=== PATIENT | male | born 1960 | race Caucasian/White ===

== ENCOUNTER 2022-08-11 08:29 | Outpatient (CLI) | payer OTHER, SELFPAY ==
[2022-08-11 14:31] LABS: SARS PCR* Negative SARS-CoV-2 (Negative)
== END 2022-08-11 08:30 | disposition home or self-care (01) ==
LOC: FBOREF 08:30
PROVIDERS: PCP Family Medicine; Visit Provider Orthopaedic Surgery
DX: Z20.822 Contact with and (suspected) exposure to COVID-19 (principal)
CPT/HCPCS: 87635

== ENCOUNTER 2022-08-13 13:18 | Inpatient (IN) | payer OTHER, SELFPAY ==
[2022-08-12] VITALS (25 sets, daily range): BP systolic 102–175; BP diastolic 57–103; PULSE 41–58; RESP 12–18; TEMP 36.3–36.8; O2SAT 93–99; BMI 40.3
[2022-08-12] MEDS: OXYCODONE (CR) 10 MG TAB.ER.12H PO (06:25)
[2022-08-12] MEDS: CELECOXIB 200 MG CAPSULE PO ×2 (06:25→21:03)
[2022-08-12] MEDS: ACETAMINOPHEN 500 MG TABLET 1000 MG PO ×3 (06:25→23:48)
[2022-08-12] MEDS: SODIUM CHLORIDE 0.9 % (FLUSH) 10 ML SYRINGE IVF (06:45)
[2022-08-12] MEDS: LACTATED RINGERS 1000 ML 1,000 ML 100 ML IV (06:45)
[2022-08-12] MEDS: fentaNYL 100 MCG/2 ML inj IVP (07:10)
[2022-08-12] MEDS: MIDAZOLAM HCL 1 MG/ML inj IVP (07:10)
--- NOTE | 2022-08-12 07:22 | SUR.PREOP ---
TIME?OUT:?0708 PT/RN/MDA?VERIFICATION?OF?SURGICAL?SITE,?PROCEDURE,?AND?CONSENT OBTAINED?PRIOR?TO?INVASIVE?PROCEDURE.
--- NOTE | 2022-08-12 09:39 | P.NB_ITS ---
Nerve Block Nerve Block Time Seen by Provider: 07:17 Date Seen: 08/12/22 Type of block requested by surgeon for post-operative analgesia: adductor canal Side: bilateral Time out performed: Yes Verification of patient name: Yes Verification of date of : Yes Site marking: site marked Name of person performing procedure: Gt Continuous monitoring Was continuous monitoring of O2 sat, B/P, training and documentation specialist, recorded every 15 minutes?: Yes Procedure Checklist: sterile prep, needles and gloves Ultrasound guided. Images saved: Yes Medications given in 5ml increments after negative aspiration: Marcaine %: 0.25 mL: 26 Needle gauge: 20 and Exparel mL: 14 Patient tolerated procedure well: Yes Additional comments: Needle noted adjacent to nerve Block Charges Block Charge (with Pro Fee): Femoral Nerve Use of Ultrasound Machine for Block: Yes- US Guidance/pain block
--- NOTE | 2022-08-12 09:39 | W.ANESCHARGE ---
Anesthesia Charges Start Date/Time Anesthesia Start Date: 08/12/22 Anesthesia Start Time: 07:28 Stop Date/Time Anesthesia Stop Date: 08/12/22 Anesthesia Stop Time: 12:05 Summary Emergency: No
--- NOTE | 2022-08-12 09:41 | W.PM.NB ---
Nerve Block Nerve Block Time Seen by Provider: 07:17 Date Seen: 08/12/22 Type of block requested by surgeon for post-operative analgesia: geniculars Side: bilateral Time out performed: Yes Verification of patient name: Yes Verification of date of : Yes Site marking: site marked Name of person performing procedure: Gt Continuous monitoring Was continuous monitoring of O2 sat, B/P, senior restaurant manager, recorded every 15 minutes?: Yes Procedure Checklist: sterile prep, needles and gloves Medications given in 5ml increments after negative aspiration: Marcaine %: 0.25 mL: 14 Needle gauge: 25 and Exparel mL: 6 Patient tolerated procedure well: Yes Block Charges Block Charge (with Pro Fee): Genicular Nerve Block Use of Ultrasound Machine for Block: No
--- NOTE | 2022-08-12 11:06 | CRLHL7_ITS ---
For Patients: As a result of the Century Cures Act, medical imaging exams and procedure reports are released immediately into your electronic medical record. You may view this report before your referring provider. If you have questions, please contact your health care provider. INDICATION: Follow up left knee arthroplasty. TECHNIQUE: Two portable postoperative images of the left knee. FINDINGS: Left knee arthroplasty. Patellar resurfacing. The components are adequately aligned and well seated. Air within the soft tissues and joint space related to the surgery. Soft tissue swelling. IMPRESSION: Postsurgical change from a left knee arthroplasty. The components are adequately aligned and well seated. Dictated by Rick Mcgraw MD @ 08/12/2022 2:11:36 PM (Electronically Signed)
--- NOTE | 2022-08-12 11:06 | CRLHL7_ITS ---
For Patients: As a result of the Cures Act, medical imaging exams and procedure reports are released immediately into your electronic medical record. You may view this report before your referring provider. If you have questions, please contact your health care provider. INDICATION: Post operative right total knee arthroplasty TECHNIQUE: Knee radiograph 2 views right COMPARISON: None FINDINGS: Bone: No acute fractures or aggressive bone lesions are identified. Joint: The patient is status post a total knee arthroplasty with patellar resurfacing. No significant knee effusion is seen. Soft tissue: Anterior subcutaneous gas and joint gas are present from recent surgery. No radiopaque foreign bodies are seen. IMPRESSION: 1. There is an unremarkable postoperative appearance of the knee arthroplasty. Dictated by: Manjit Wheatley MD @ 08/12/2022 14:03:35 (Electronically Signed)
--- NOTE | 2022-08-12 11:08 | PM.ORPRC ---
Procedure Note Date of procedure: 08/12/22 Procedure: PREOPERATIVE DIAGNOSIS: Bilateral knee osteoarthritis POSTOPERATIVE DIAGNOSIS: Bilateral knee osteoarthritis NAME OF OPERATION: Bilateral total knee arthroplasty SURGEON: Rafi Hansen MD DRYWALL HANGER: Rich Browning PA-C ANESTHESIA: Spinal ESTIMATED BLOOD LOSS: 0 mL COMPLICATIONS: None SPECIMENS: None DRAINS: None PREOPERATIVE ANTIBIOTICS: Ancef 3 grams IMPLANTS: Right knee: 1. J&J Attune # 8 posterior stabilized femur 2. # 9 fixed-bearing tibia 3. # 8 posterior stabilized, 7 mm fixed-bearing polyethylene 4. 41 patella Left knee: 1. J&J Attune # 9 posterior stabilized femur 2. # 9 fixed-bearing tibia 3. # 9 posterior stabilized, 5 mm fixed-bearing polyethylene 4. 41 patella INDICATIONS: The patient is a 62-year-old with a longstanding history of severe, unrelenting bilaterally knee pain secondary to end-stage (grade IV) right knee osteoarthritis. Despite appropriate nonoperative management, including activity modification, anti-inflammatories, [id number] pain medication, bracing, physical therapy, and injections they continue to have pain and disability. Operative intervention was offered. The risks, benefits and expected outcomes were discussed in detail. These included but were not limited to: Infection, bleeding, injury to blood vessel or nerve, venous thromboembolism. All questions were answered to their satisfaction. Use of an commercial real estate assistant was necessary throughout the case for patient positioning and safety, soft tissue retraction, and closure. PROCEDURE: Spinal anesthesia was administered. The patient was placed supine on the operating table. The commercial real estate assistant made sure the patient was positioned appropriately. The lower extremity was prepped and draped in the usual sterile fashion. The limb was exsanguinated with the Leonard bandage. The pneumatic tourniquet was inflated to 300 mmHg. A standard anterior incision was made with the knee in flexion. Subcutaneous dissection was sharply taken through fascial layer #1. Full-thickness medial and lateral flaps were elevated. The commercial real estate assistant retracted the soft tissues and protected them throughout the case. A standard medial parapatellar approach was made. The patella was everted. The infrapatellar fat pad was preserved. The menisci and cruciate ligaments were sharply d?brided. Marginal osteophytes were d?brided with the rongeur. The drill was used to penetrate the femoral canal. The canal was aspirated and irrigated with pulse lavage. The intramedullary femoral guide was placed for a 5-degree valgus cut, removing 10 mm off the distal femur. The saw was used to make the cut. Whitesides line and the trans epicondylar axis were marked. The femoral sizing guide was pinned onto the distal femur. Three degrees of external rotation nicely parallels the transepicondylar axis. Pins were placed for posterior referencing. The four-in-one cutting guide was pinned onto the distal femur. The anterior, posterior, and chamfer cuts were made. The commercial real estate assistant protected the collateral ligaments. The box cutting guide was pinned. The box cuts were made. The boxed trial was placed and was an excellent fit. Drill holes for the lugs were made. Attention was then turned to the proximal tibia. The extramedullary tibial guide was placed for a neutral varus/valgus cut with 5 degrees of posterior slope, removing 2 mm based off the medial tibial surface. The commercial real estate assistant protected the collateral ligaments and the neurovascular bundle. The saw was used to make the cut. Trial components were placed. The knee was nicely balanced in both flexion and extension. The trial components were removed. The tray was placed in appropriate rotation, parallel to our tibial cutting pins. It was pinned by the commercial real estate assistant and the drill and the punch were used. The tray was removed. The punch was used again. We placed a bone plug in the femoral canal. Attention was then turned to the patella. [place] patellar thickness was 26 mm. The lobster claw resection guide was used with the 9.5 mm monty. The saw was used to make the cut. Drill holes were made by the commercial real estate assistant. The trial was placed and was an excellent fit. Cancellous surfaces were irrigated with pulse lavage and thoroughly dried by the commercial real estate assistant. We cemented the tibial component, then the femoral component. We impacted the 7 mm polyethylene onto the tibial tray. The knee was brought into full extension. We then cemented the patellar component. Excessive cement was removed. The cement was allowed to harden. The knee was taken through a range of motion and was found to be nicely balanced in both flexion and extension. The patella tracks centrally. The commercial real estate assistant did a three minute dilute Betadine solution soak. The commercial real estate assistant irrigated the wound with 3 liters of normal saline via pulse lavage. The commercial real estate assistant reapproximated the extensor mechanism with #1 Vicryl in an interrupted [id number] fashion. The commercial real estate assistant then ran the extensor mechanism with a #1 PDO Stratafix. The commercial real estate assistant closed the subcutaneous tissues with a 3-0 Stratafix and the skin with a running 3-0 Stratafix in a subcuticular fashion. Glue was used to seal the skin. The commercial real estate assistant placed a dry dressing, AUBREY stocking, and Polar Care. Attention was then turned to the left knee. The lower extremity was prepped and draped in the usual sterile fashion. The limb was exsanguinated with the Leonard bandage. The pneumatic tourniquet was inflated to 300 mmHg. A standard anterior incision was made with the knee in flexion. Subcutaneous dissection was sharply taken through fascial layer #1. Full-thickness medial and lateral flaps were elevated. The commercial real estate assistant retracted the soft tissues and protected them throughout the case. A standard medial parapatellar approach was made. The patella was everted. The infrapatellar fat pad was preserved. The menisci and cruciate ligaments were sharply d?brided. Marginal osteophytes were d?brided with the rongeur. The drill was used to penetrate the femoral canal. The canal was aspirated and irrigated with pulse lavage. The intramedullary femoral guide was placed for a 5-degree valgus cut, removing 12 mm off the distal femur. The saw was used to make the cut. Whitesides line and the trans epicondylar axis were marked. The femoral sizing guide was pinned onto the distal femur. Three degrees of external rotation nicely parallels the transepicondylar axis. Pins were placed for posterior referencing. The four-in-one cutting guide was pinned onto the distal femur. The anterior, posterior, and chamfer cuts were made. The commercial real estate assistant protected the collateral ligaments. The box cutting guide was pinned. The box cuts were made. The boxed trial was placed and was an excellent fit. Drill holes for the lugs were made. Attention was then turned to the proximal tibia. The extramedullary tibial guide was placed for a neutral varus/valgus cut with 5 degrees of posterior slope, removing 2 mm based off the medial tibial surface. The commercial real estate assistant protected the collateral ligaments and the neurovascular bundle. The saw was used to make the cut. Trial components were placed. The knee was nicely balanced in both flexion and extension. The trial components were removed. The tray was placed in appropriate rotation, parallel to our tibial cutting pins. It was pinned by the commercial real estate assistant and the drill and the punch were used. The tray was removed. The punch was used again. We placed a bone plug in the femoral canal. Attention was then turned to the patella. [place] patellar thickness was 26 mm. The [employer] claw resection guide was used with the 9.5 mm monty. The saw was used to make the cut. Drill holes were made by the commercial real estate assistant. The trial was placed and was an excellent fit. Cancellous surfaces were irrigated with pulse lavage and thoroughly dried by the commercial real estate assistant. We cemented the tibial component, then the femoral component. We impacted the 5 mm polyethylene onto the tibial tray. The knee was brought into full extension. We then cemented the patellar component. Excessive cement was removed. The cement was allowed to harden. The knee was taken through a range of motion and was found to be nicely balanced in both flexion and extension. The patella tracks centrally. The commercial real estate assistant did a three minute dilute Betadine solution soak. The commercial real estate assistant irrigated the wound with 3 liters of normal saline via pulse lavage. The commercial real estate assistant reapproximated the extensor mechanism with #1 Vicryl in an interrupted qdfhar-ci-vgnqj fashion. The commercial real estate assistant then ran the extensor mechanism with a #1 PDO Stratafix. The commercial real estate assistant closed the subcutaneous tissues with a 3-0 Stratafix and the skin with a running 3-0 Stratafix in a subcuticular fashion. Glue was used to seal the skin. The commercial real estate assistant placed a dry dressing, AUBREY stocking, and Polar Care. Sponge and needle counts were correct x2. The patient tolerated the procedure well. There were no apparent complications. They were carefully transferred to the hospital bed and taken to the postanesthesia care unit in satisfactory condition. PLAN: The patient will be mobilized with physical therapy. Aspirin will be used for DVT prophylaxis. They will be discharged to home once medically appropriate.
--- NOTE | 2022-08-12 13:59 | W.ANESCHARGE ---
Anesthesia Charges Start Date/Time Anesthesia Start Date: 08/12/22 Anesthesia Start Time: 07:28 Stop Date/Time Anesthesia Stop Date: 08/12/22 Anesthesia Stop Time: 12:05 Summary Emergency: No
--- NOTE | 2022-08-12 15:30 | P.IMCN_ITS ---
Date of Consult Consult date: 08/12/22 Requesting Physician: Orthopedics Primary Care Provider: Deny Weber DO Consult Narrative Reason for consult: Management of medical problems Narrative: Phuc Lee is a 62 year old male seen in consultation for management of medical problems following bilateral knee arthroplasty earlier today. Procedures performed by Dr. Hansen requests consultation. There were no operative complications. Postoperatively he is doing well. He reports excellent pain control. His spinal anesthesia has worn off but his nerve blocks appear to be working. He has no other concerns at this time. Preoperatively he was doing well. No recent illness. He was somewhat disabled by his knee pain and reports that he had difficulty walking up and down stairs prior to surgery. Preop physical identified no significant concerns for the perioperative period. He does have sleep apnea and has brought his CPAP along No previous history of complications related to surgery, anesthesia, bleeding or clotting disorder. He does note that he bruises easily with aspirin and has been prescribed aspirin for postoperative VTE prophylaxis. Review of Systems Narrative: Patient reports no other concerns. and daughter also present and have identified no concerns outside of postoperative recovery. [facility] Medical History (Updated 08/12/22 @ 15:42 by Jorge Luis Blanco MD) Easy bruisability High cholesterol Hypertension Obesity Physical deconditioning Skin cancer Sleep apnea Stage 3a chronic kidney disease Surgical History H/O arthroscopy of knee H/O hernia repair History of total bilateral knee replacement (08/12/22) Family History Father Lung cancer Mother Cancer of kidney High blood pressure Sister High blood pressure Brother High blood pressure Social History (Updated 08/12/22 @ 15:37 by Jorge Luis Blanco MD) Narrative: He lives in [place] with his . His children are also available to help postoperatively. He lives in a house with 3 levels. The main floor has no bathroom. It is 12 steps to the upstairs bathroom. He was planning on living on the main floor when he went home. I recommended his get a commode until he is efficiently walking stairs. He does not smoke and he does not drink alcohol Smoking Status: Never smoker Do you use any of these nicotine containing products: None How often do you have a drink containing alcohol: monthly or less Alcohol type: beer How many standard drinks containing alcohol do you have on a typical day: 1 or 2 How often do you have six or more drinks on one occasion: Never AUDIT-C Alcohol total score: 1 Non-prescribed substance use: denies use Caffeine: Yes (Diet Pepsi, 3-4 cans/day) Meds Home Medications and Allergies Home Medications Medication Instructions Recorded Confirmed Type atenolol 100 mg tablet 100 mg PO DAILY 08/11/22 08/12/22 History betamethasone dipropionate 0.05 % 1 applic topical BID PRN 08/11/22 08/12/22 History topical ointment cholecalciferol (vitamin D3) 125 125 mcg PO DAILY 08/11/22 08/12/22 History mcg (5,000 unit) capsule ergocalciferol (vitamin D2) 1,250 50,000 unit PO MOTH 08/11/22 08/12/22 History mcg (50,000 unit) capsule (Vitamin D2) simvastatin 40 mg tablet 40 mg PO HS 08/11/22 08/12/22 History triamterene 37.5 1 tab PO DAILY 08/11/22 08/12/22 History mg-hydrochlorothiazide 25 mg tablet vitamins A,C,V-fjat-tzvnto 14,320 1 cap PO DAILY 08/11/22 08/12/22 History unit-226 mg-200 unit capsule (PreserVision AREDS) Allergies Allergy/AdvReac Type Severity Reaction Status Date / Time No Known Drug Allergies Allergy Verified 08/12/22 06:15 Exam Narrative: Exam Narrative: He is somewhat sleepy recovering from anesthesia. He arouses to voice and answers questions appropriately. Head is normal. Eyes normal. Oropharynx with very small airway. Neck is supple without mass or adenopathy or tenderness. Respirations are clear to auscultation without wheezing rales or rhonchi. Breathing is unlabored. Cardiovascular: S1, S2, regular rate and rhythm. No murmur gallop or rub. Abdomen: Bowel sounds active. Abdomen is soft without tenderness or mass. External genitalia normal. Extremities normal. Ice packs on both knees. He has no significant edema. Good peripheral pulses and perfusion in both feet. He has intact sensation and motion in both feet and ankles. Const: Vital Signs, click to edit/add: Vital Signs - 24 hr 08/12/22 06:51 08/12/22 07:10 08/12/22 07:15 Temperature 98.3 F Pulse Rate 46 L 46 L 44 L Pulse Rate [Left P ulse Oximeter] Respiratory Rate 16 16 16 Blood Pressure 134/72 109/62 114/63 Blood Pressure [Ri ght Arm] Pulse Oximetry 96 96 99 Oxygen Delivery Me thod Room Air Nasal Cannula Nasal Cannula Oxygen Flow Rate 4 4 08/12/22 07:20 08/12/22 12:01 08/12/22 12:35 Temperature 97.4 F L Pulse Rate 44 L 41 L 55 L Pulse Rate [Left P ulse Oximeter] Respiratory Rate 16 14 18 Blood Pressure 102/64 145/91 H 167/89 H Blood Pressure [Ri ght Arm] Pulse Oximetry 99 95 93 Oxygen Delivery Me thod Nasal Cannula Room Air Room Air Oxygen Flow Rate 4 08/12/22 12:05 08/12/22 12:10 08/12/22 12:15 Temperature 97.3 F L Pulse Rate 42 L 43 L 45 L Pulse Rate [Left P ulse Oximeter] Respiratory Rate 12 14 16 Blood Pressure 153/96 H 165/97 H 155/98 H Blood Pressure [Ri ght Arm] Pulse Oximetry 94 96 94 Oxygen Delivery Me thod Room Air Room Air Room Air Oxygen Flow Rate 08/12/22 12:20 08/12/22 12:25 08/12/22 12:30 Temperature 97.5 F L Pulse Rate 51 L 51 L 58 L Pulse Rate [Left P ulse Oximeter] Respiratory Rate 16 16 14 Blood Pressure 167/91 H 172/93 H 163/94 H Blood Pressure [Ri ght Arm] Pulse Oximetry 94 93 94 Oxygen Delivery Me thod Room Air Room Air Room Air Oxygen Flow Rate 08/12/22 12:40 08/12/22 12:47 08/12/22 13:00 Temperature 97.4 F L 97.4 F L Pulse Rate 57 L 55 L 53 L Pulse Rate [Left P ulse Oximeter] Respiratory Rate 12 16 18 Blood Pressure 171/93 H 169/89 H Blood Pressure [Ri ght Arm] 175/94 H Pulse Oximetry 93 95 Oxygen Delivery Me thod Room Air Room Air Room Air Oxygen Flow Rate 08/12/22 13:15 08/12/22 13:30 08/12/22 13:45 Temperature 97.4 F L Pulse Rate Pulse Rate [Left P ulse Oximeter] 50 L 51 L 50 L Respiratory Rate 18 18 18 Blood Pressure Blood Pressure [Ri ght Arm] 121/57 L 113/91 H 140/103 H Pulse Oximetry 95 95 96 Oxygen Delivery Me thod Room Air Room Air Room Air Oxygen Flow Rate 08/12/22 14:16 Temperature Pulse Rate Pulse Rate [Left P ulse Oximeter] 50 L Respiratory Rate 18 Blood Pressure Blood Pressure [Ri ght Arm] 158/92 H Pulse Oximetry 94 Oxygen Delivery Me thod Room Air Oxygen Flow Rate Documenting provider has reviewed patient's vital signs: yes Assessment and Plan Assessment and plan (1) History of total bilateral knee replacement: Problem comment: Bilateral TKA (08/12/2022, Dr. Hansen) Status: Acute (2) Obesity: Problem comment: This will increase the challenge of mobility for the patient, his family and therapists Status: Acute (3) Physical deconditioning: Problem comment: Preoperatively had become deconditioned do due to disability from bilateral knee arthritis. Status: Acute (4) Sleep apnea: Problem comment: uses CPAP. Opioid pain medicines will make his sleep apnea much worse. He is to be very careful to use CPAP at any time when sleeping. Status: Acute (5) Easy bruisability: Problem comment: When taking aspirin. Will use aspirin for VTE prophylaxis Status: Acute (6) Hypertension: Problem comment: Continue atenolol with hold parameters. Hold triamterene hydrochlorothiazide for now Status: Acute Plan Patient is admitted to the hospital for recovery from bilateral knee arthroplasty. Doing quite well at this point. No obvious surgical complications. Patient and family are informed of the challenges of recovery from bilateral knee surgery and appear willing and able to step up to the challenge. We talked in some detail about pain management, arranging the home to accommodate him including allowing him to live on 1 level until he is more mobile on stairs. We also talked about the importance of using CPAP religiously while taking opioids for pain Total time spent today is 50 minutes, 30 minutes in coordination of care and discussing with patient and family and other providers ongoing evaluation management of postoperative care and pain
[2022-08-12] MEDS: CEFAZOLIN 3 GM in 0.9 % SODIUM CHLORIDE 100 ml 100 ML IVPB ×2 (15:51→23:47)
[2022-08-12] MEDS: HYDROmorphone 0.5 mg/0.5 ml inj IVP (16:00)
[2022-08-12] MEDS: LACTATED RINGERS 1000 ML 1,000 ML 75 ML IV (18:10)
--- NOTE | 2022-08-12 19:54 | PC.NURSE ---
Pt up with assist of 2 first time to bedside commode. Pain 8/10 when up, lowered to 2-4/10 once back in bed. See MAR for medication administration with relief. PT & OT 08/13 to assess if pt is able to return home with or stay an additional day for pain control and ambulation saftey.
[2022-08-12] MEDS: SIMVASTATIN 40 MG TABLET PO (21:03)
[2022-08-12] MEDS: ASPIRIN 81 MG TABLET EC PO (21:03)
[2022-08-12] MEDS: SENNOSIDES 1 TAB TABLET 2 TAB PO (21:03)
[2022-08-12] MEDS: OXYCODONE 5 MG TABLET PO (23:49)
[2022-08-13] VITALS (8 sets, daily range): BP systolic 131–147; BP diastolic 66–84; PULSE 54–61; RESP 16–18; TEMP 36.6–37.3; O2SAT 91–95
[2022-08-13] MEDS: OXYCODONE 5 MG TABLET PO ×4 (06:24→20:01)
[2022-08-13] MEDS: ACETAMINOPHEN 500 MG TABLET 1000 MG PO ×2 (06:24→13:45)
--- NOTE | 2022-08-13 07:01 | PC.NURSE ---
23-07: pleasant and cooperative. Calls appropriately. Pt dangle at bedside to use urinal, tolerated well. c/o pain 4-5/10 at rest, 7/10 with movement, 10mg oxy given x 2, with relief. VSS. Bilat teds on, cryo cuff on, dressings CDI, SCDs on. CPAP on while pt asleep.
[2022-08-13 07:39] LABS: Basophils Absolute Auto 0.01 K/uL (0.00-0.30); Basophils Percent Auto 0.1 % (0.0-3.0); Eosinophils Absolute Auto 0.03 K/uL (0.00-0.50); Eosinophils Percent Auto 0.3 % (0.0-7.0); Hematocrit 40.6 % (37.0-53.0); Hemoglobin* 13.5 gm/dL (13.5-17.5); Immature Granulocytes Abs Auto 0.04 K/uL (0.00-0.30); Immature Granulocytes Pct Auto 0.4 %; Lymphocytes Percent Auto 10.4 % (20-44); Mean Corpuscular HGB Conc 33 gm/dL (32-36); Mean Corpuscular Hemoglobin 31 pg (26-34); Mean Corpuscular Volume 92 fL (80-100); Neutrophils Percent Auto 76.8 % (42.0-72.0); Platelet Count* 164 K/uL (140-440); RDW Coefficient of Variation % 12.8 % (11.5-15.5); White Blood Count* 10.26 K/uL (4.50-11.00)
[2022-08-13 07:40] LABS: Slide Review Reflex No
[2022-08-13 07:47] LABS: Sodium* 139 mmol/L (135-149)
[2022-08-13 07:48] LABS: Potassium* 4.3 mmol/L (3.6-5.1)
[2022-08-13 07:50] LABS: Est. Creatinine Clearance* 77.06; Estimated Glomerular Filt Rate 84 ml/min; INR 1.16 (0.91-1.10); Prothrombin Time 15.5 Seconds
[2022-08-13 07:51] LABS: Blood Urea Nitrogen* 23 mg/dL (7-30)
[2022-08-13] MEDS: CEFAZOLIN 3 GM in 0.9 % SODIUM CHLORIDE 100 ml 100 ML IVPB (07:53)
[2022-08-13] MEDS: atenoloL 50 MG TABLET 100 MG PO (08:36)
[2022-08-13] MEDS: CELECOXIB 200 MG CAPSULE PO ×2 (08:37→20:00)
[2022-08-13] MEDS: ASPIRIN 81 MG TABLET EC PO ×2 (08:37→20:01)
[2022-08-13] MEDS: SENNOSIDES 1 TAB TABLET 2 TAB PO ×2 (08:37→20:01)
--- NOTE | 2022-08-13 11:50 | PM.ORPN ---
Subjective Subjective Time Seen by Provider: 08:20 Date Seen: 08/13/22 Principal diagnosis: Status post bilateral total knee replacement Interval history: Phuc is comfortable at rest in his bed today. He has not been ambulating since his surgery yet, however he has gotten up to the commode. He will discharge to home tomorrow. Ortho Exam Narrative Exam Narrative: Alert and oriented x3. Patient is in no acute distress. Converses without labored breathing. Hearing is grossly intact. Ambulates with a walker. Examination of lower extremities shows mild effusions. Mild soft tissue edema about the knees. CMS intact bilateral lower extremity peers bilateral calves are soft and nontender. Const Vital Signs, click to edit/add: Vital Signs - 24 hr 08/12/22 12:01 08/12/22 12:35 08/12/22 12:05 Temperature 97.4 F L Pulse Rate 41 L 55 L 42 L Pulse Rate [Left Pulse Oximeter] Respiratory Rate 14 18 12 Blood Pressure 145/91 H 167/89 H 153/96 H Blood Pressure [Right Arm] Pulse Oximetry 95 93 94 Oxygen Delivery Method Room Air Room Air Room Air Oxygen Flow Rate 08/12/22 12:10 08/12/22 12:15 08/12/22 12:20 Temperature 97.3 F L Pulse Rate 43 L 45 L 51 L Pulse Rate [Left Pulse Oximeter] Respiratory Rate 14 16 16 Blood Pressure 165/97 H 155/98 H 167/91 H Blood Pressure [Right Arm] Pulse Oximetry 96 94 94 Oxygen Delivery Method Room Air Room Air Room Air Oxygen Flow Rate 08/12/22 12:25 08/12/22 12:30 08/12/22 12:40 Temperature 97.5 F L Pulse Rate 51 L 58 L 57 L Pulse Rate [Left Pulse Oximeter] Respiratory Rate 16 14 12 Blood Pressure 172/93 H 163/94 H 171/93 H Blood Pressure [Right Arm] Pulse Oximetry 93 94 93 Oxygen Delivery Method Room Air Room Air Room Air Oxygen Flow Rate 08/12/22 12:47 08/12/22 13:00 08/12/22 13:15 Temperature 97.4 F L 97.4 F L 97.4 F L Pulse Rate 55 L 53 L Pulse Rate [Left Pulse Oximeter] 50 L Respiratory Rate 16 18 18 Blood Pressure 169/89 H Blood Pressure [Right Arm] 175/94 H 121/57 L Pulse Oximetry 95 95 Oxygen Delivery Method Room Air Room Air Room Air Oxygen Flow Rate 08/12/22 13:30 08/12/22 13:45 08/12/22 14:00 Temperature Pulse Rate Pulse Rate [Left Pulse Oximeter] 51 L 50 L 50 L Respiratory Rate 18 18 18 Blood Pressure Blood Pressure [Right Arm] 113/91 H 140/103 H 158/92 H Pulse Oximetry 95 96 94 Oxygen Delivery Method Room Air Room Air Room Air Oxygen Flow Rate 08/12/22 15:00 08/12/22 14:30 08/12/22 15:00 Temperature 97.8 F Pulse Rate Pulse Rate [Left Pulse Oximeter] 49 L 50 L Respiratory Rate 18 18 Blood Pressure Blood Pressure [Right Arm] 169/84 H 173/98 H Pulse Oximetry 94 94 94 Oxygen Delivery Method Room Air Room Air Oxygen Flow Rate 08/12/22 16:00 08/12/22 17:00 08/12/22 18:00 Temperature Pulse Rate Pulse Rate [Left Pulse Oximeter] 53 L 55 L 57 L Respiratory Rate 18 18 18 Blood Pressure Blood Pressure [Right Arm] 148/89 H 136/84 149/87 H Pulse Oximetry 95 96 96 Oxygen Delivery Method Room Air Room Air Room Air Oxygen Flow Rate 08/12/22 23:00 08/12/22 23:00 08/12/22 23:00 Temperature 98.1 F Pulse Rate Pulse Rate [Left Pulse Oximeter] 58 L 58 L Respiratory Rate 18 18 Blood Pressure Blood Pressure [Right Arm] 140/75 H Pulse Oximetry 95 95 Oxygen Delivery Method Room Air Oxygen Flow Rate 08/13/22 02:55 08/13/22 07:00 08/13/22 07:30 Temperature 98 F 98 F Pulse Rate Pulse Rate [Left Pulse Oximeter] 57 L 57 L Respiratory Rate 18 18 Blood Pressure Blood Pressure [Right Arm] 143/84 H 143/84 H Pulse Oximetry 95 92 92 Oxygen Delivery Method Room Air Room Air Oxygen Flow Rate 4 08/13/22 11:29 Temperature Pulse Rate Pulse Rate [Left Pulse Oximeter] 54 L Respiratory Rate 16 Blood Pressure Blood Pressure [Right Arm] Pulse Oximetry 93 Oxygen Delivery Method CPAP Oxygen Flow Rate Assessment and Plan Assessment and plan (1) History of total bilateral knee replacement: Problem details: Bilateral TKA (08/12/2022, Dr. Hansen) Status: Acute Assessment and Plan: Plan for discharge is tomorrow to home if they meet discharge criteria. DVT prophylaxis includes aspirin 81 mg twice daily x1 month, Abdon stockings x1 month may remove for 1 hr per day, frequent ambulation Remove dressing in 1 week. Observe wound and phone Orthopedics with any questions or concerns Return to clinic in 1 week for a wound check Return to clinic in [address] Hansen Minimize narcotic use. Wean off and discontinue soon as possible. Activities as tolerated. No strenuous activity. Outpatient physical therapy as scheduled. Ice and elevate the operative extremity. No restriction on ice. (2) Obesity: Problem details: This will increase the challenge of mobility for the patient, his family and therapists Status: Acute (3) Physical deconditioning: Problem details: Preoperatively had become deconditioned do due to disability from bilateral knee arthritis. Status: Acute (4) Sleep apnea: Problem details: uses CPAP. Opioid pain medicines will make his sleep apnea much worse. He is to be very careful to use CPAP at any time when sleeping. Status: Acute (5) Easy bruisability: Problem details: When taking aspirin. Will use aspirin for VTE prophylaxis Status: Acute (6) Hypertension: Problem details: Continue atenolol with hold parameters. Hold triamterene hydrochlorothiazide for now Status: Acute
--- NOTE | 2022-08-13 17:15 | PM.IMPN1 ---
Progress Note: A&P Assessment and plan (1) History of total bilateral knee replacement: Problem details: Bilateral TKA (08/12/2022, Dr. Hansen). Recovering from surgery as expected. No obvious complications. Significant issues with bilateral knee pain. Status: Acute (2) Obesity: Problem details: This will increase the challenge of mobility for the patient, his family and therapists. Status: Acute (3) Physical deconditioning: Problem details: Preoperatively had become deconditioned do due to disability from bilateral knee arthritis. Status: Acute (4) Sleep apnea: Problem details: uses CPAP. Opioid pain medicines will make his sleep apnea much worse. He is to be very careful to use CPAP at any time when sleeping. Status: Acute (5) Easy bruisability: Problem details: When taking aspirin. Will use aspirin for VTE prophylaxis Status: Acute (6) Hypertension: Problem details: Continue atenolol with hold parameters. Hold triamterene hydrochlorothiazide for now Status: Acute Plan Continue in hospital for 1 more day. Would like to see him move with needing only assist of 1. Would like to see that his pain is reasonably well controlled. Time Spent With Patient Total time spent: Total time spent today is 35 minutes, 25 minutes in coordination of care discussing with patient and other providers management of postoperative pain and recovery and sleep apnea Subjective Date Seen: 08/13/22 Interval history: 62-year-old male seen in followup of bilateral knee arthroplasty. Report having a difficult night of sleep last night. He thinks this is more because he is in a unfamiliar place rather than other problems. This morning he has begun to have quite a bit of pain in his receiving oxycodone 10 mg every couple hours. With this he is getting a little sedated. He is needing assist of 2 this morning for standing and transferring and walking. No nausea. No dyspnea. He wore CPAP all night. Exam Narrative: Exam Narrative: He is alert and appears in no distress. He is pleasant cooperative. He is seen with his today. Respirations clear to auscultation. Cardiovascular: S1, S2, regular rate and rhythm. Abdomen is soft without tenderness. Extremities without edema. Const: Vital Signs, click to edit/add: Vital Signs - 24 hr 08/12/22 18:00 08/12/22 23:00 08/12/22 23:00 Temperature Pulse Rate [Left P ulse Oximeter] 57 L 58 L Respiratory Rate 18 18 Blood Pressure [Ri ght Arm] 149/87 H Pulse Oximetry 96 95 Oxygen Delivery Me thod Room Air Oxygen Flow Rate 08/12/22 23:00 08/13/22 02:55 08/13/22 07:00 Temperature 98.1 F 98 F Pulse Rate [Left P ulse Oximeter] 58 L 57 L Respiratory Rate 18 18 Blood Pressure [Ri ght Arm] 140/75 H 143/84 H Pulse Oximetry 95 95 92 Oxygen Delivery Me thod Room Air Room Air Oxygen Flow Rate 08/13/22 07:30 08/13/22 11:29 08/13/22 15:00 Temperature 98 F Pulse Rate [Left P ulse Oximeter] 57 L 54 L Respiratory Rate 18 16 Blood Pressure [Ri ght Arm] 143/84 H Pulse Oximetry 92 93 95 Oxygen Delivery Me thod Room Air CPAP Oxygen Flow Rate 4 08/13/22 16:50 Temperature 98.9 F Pulse Rate [Left P ulse Oximeter] 60 Respiratory Rate 16 Blood Pressure [Ri ght Arm] 143/81 H Pulse Oximetry 91 Oxygen Delivery Me thod CPAP Oxygen Flow Rate Documenting provider has reviewed patient's vital signs: yes Labs Labs: Laboratory Results - last 24 hr 08/13/22 08/13/22 08/13/22 07:28 07:28 07:28 WBC 10.26 RBC 4.40 Hgb 13.5 Hct 40.6 MCV 92 MCH 31 MCHC 33 RDW Coeff of Virgen 12.8 Plt Count 164 Neut % (Auto) 76.8 H Lymph % (Auto) 10.4 L [place] % (Auto) 12.0 H Eos % (Auto) 0.3 Baso % (Auto) 0.1 Neut # (Auto) 7.90 H Lymph # (Auto) 1.10 [place] # (Auto) 1.20 H Eos # (Auto) 0.03 Baso # (Auto) 0.01 INR 1.16 H Sodium 139 Potassium 4.3 BUN 23 Creatinine 1.0 Estimated Creat Clear 77.06 Estimated GFR 84
--- NOTE | 2022-08-13 19:36 | PC.NURSE ---
Pt up with assist of 1, gait belt, and walker to commode and chair. Pain 4-5/10, see MAR for medication administration with relief. CPAP while sleeping otherwise on RA. Pt will return home with supportive and adult children to assist with rehab.
[2022-08-13] MEDS: SIMVASTATIN 40 MG TABLET PO (20:01)
--- NOTE | 2022-08-13 22:43 | PC.NURSE ---
Status [id number] Alert and oriented. Pleasant and cooperative. PRN oxy given at bedtime. VSS on room air. Wearing CPAP overnight. TEDS applied. Declined foot SCDs. Remained in bed this shift.
[2022-08-14] MEDS: ACETAMINOPHEN 500 MG TABLET 1000 MG PO ×2 (00:23→06:07)
[2022-08-14 03:00] VITALS: BP 120/72; PULSE 62; RESP 16; O2SAT 90
[2022-08-14] MEDS: OXYCODONE 5 MG TABLET PO ×2 (06:07→11:00)
--- NOTE | 2022-08-14 06:36 | PC.NURSE ---
23-07: pleasant and cooperative. VSS. CPAP on while asleep. Pain 2-5/10, 10mg oxy given x 1.?Cryo cuff on, Dressings CDI. CPAP on while asleep.
[2022-08-14 07:03] LABS: Basophils Absolute Auto 0.01 K/uL (0.00-0.30); Basophils Percent Auto 0.1 % (0.0-3.0); Eosinophils Absolute Auto 0.34 K/uL (0.00-0.50); Eosinophils Percent Auto 3.5 % (0.0-7.0); Hematocrit 38.1 % (37.0-53.0); Hemoglobin* 12.7 gm/dL (13.5-17.5); Immature Granulocytes Abs Auto 0.05 K/uL (0.00-0.30); Immature Granulocytes Pct Auto 0.5 %; Lymphocytes Percent Auto 13.7 % (20-44); Mean Corpuscular HGB Conc 33 gm/dL (32-36); Mean Corpuscular Hemoglobin 31 pg (26-34); Mean Corpuscular Volume 93 fL (80-100); Neutrophils Absolute Auto 6.91 K/uL (1.7-7.0); Neutrophils Percent Auto 70.2 % (42.0-72.0); Platelet Count* 142 K/uL (140-440); RDW Coefficient of Variation % 13.1 % (11.5-15.5); Red Blood Count 4.08 m/uL (4.30-5.90); White Blood Count* 9.84 K/uL (4.50-11.00)
[2022-08-14 07:08] LABS: Sodium* 139 mmol/L (135-149)
[2022-08-14 07:09] LABS: Potassium* 3.8 mmol/L (3.6-5.1)
[2022-08-14 07:11] LABS: Creatinine* 1.1 mg/dL (0.5-1.5); Est. Creatinine Clearance* 70.05; Estimated Glomerular Filt Rate 75 ml/min
[2022-08-14 07:12] LABS: Blood Urea Nitrogen* 24 mg/dL (7-30); Slide Review Reflex No
[2022-08-14 07:13] LABS: INR 1.18 (0.91-1.10); Prothrombin Time 15.7 Seconds
[2022-08-14 08:23] VITALS: O2SAT 91
[2022-08-14 08:25] VITALS: BP 136/75; PULSE 60; RESP 18; TEMP 36.6; O2SAT 91
[2022-08-14] MEDS: CELECOXIB 200 MG CAPSULE PO (08:43)
[2022-08-14] MEDS: SENNOSIDES 1 TAB TABLET 2 TAB PO (08:43)
[2022-08-14] MEDS: ASPIRIN 81 MG TABLET EC PO (08:43)
[2022-08-14] MEDS: atenoloL 50 MG TABLET 100 MG PO (08:43)
--- NOTE | 2022-08-14 08:54 | PM.ORPN ---
Subjective Subjective Time Seen by Provider: 08:54 Date Seen: 08/14/22 Principal diagnosis: Status post bilateral total knee replacement Interval history: Phuc is comfortable this morning. He and his states that he has a high pain tolerance. He will be discharging to home today. Ortho Exam Narrative Exam Narrative: Patient denies nausea, vomiting, fever, chills, chest pain, shortness of breath Alert and oriented x3. Patient is in no acute distress. Converses without labored breathing. Hearing is grossly intact. Ambulates with a walker. Emanation of bilateral lower extremities shows minimal soft tissue edema about both lower extremities. Minimal effusion. Dressing is intact bilateral. Bilateral calves are soft and nontender. CMS intact bilateral lower extremities. Good quad function. Const Vital Signs, click to edit/add: Vital Signs - 24 hr 08/13/22 11:29 08/13/22 15:00 08/13/22 16:50 Temperature 98.9 F Pulse Rate [Left Pulse Oximeter] 54 L 60 Respiratory Rate 16 16 Blood Pressure [Right Arm] 143/81 H Pulse Oximetry 93 95 91 Oxygen Delivery Method CPAP CPAP 08/13/22 20:11 08/13/22 23:00 08/13/22 23:00 Temperature 99.2 F Pulse Rate [Left Pulse Oximeter] 61 60 Respiratory Rate 16 16 Blood Pressure [Right Arm] 147/75 H Pulse Oximetry 91 94 Oxygen Delivery Method CPAP 08/13/22 23:00 08/14/22 03:00 08/14/22 08:23 Temperature 98.2 F Pulse Rate [Left Pulse Oximeter] 60 62 Respiratory Rate 16 16 Blood Pressure [Right Arm] 131/66 120/72 Pulse Oximetry 94 90 91 Oxygen Delivery Method Room Air CPAP Room Air CPAP 08/14/22 08:25 Temperature 97.9 F Pulse Rate [Left Pulse Oximeter] 60 Respiratory Rate 18 Blood Pressure [Right Arm] 136/75 Pulse Oximetry 91 Oxygen Delivery Method Room Air Assessment and Plan Assessment and plan (1) History of total bilateral knee replacement: Problem details: Bilateral TKA (08/12/2022, Dr. Hansen). Status: Acute Assessment and Plan: Plan for discharge is today to home if they meet discharge criteria. DVT prophylaxis includes aspirin 81 mg twice daily x1 month, Abdon stockings x1 month may remove for 1 hr per day, frequent ambulation Remove dressing in 1 week. Observe wound and phone Orthopedics with any questions or concerns Return to clinic in 1 week for a wound check Return to clinic in [address] Hansen Minimize narcotic use. Wean off and discontinue soon as possible. Activities as tolerated. No strenuous activity. Outpatient physical therapy as scheduled. Ice and elevate the operative extremity. No restriction on ice. (2) Obesity: Problem details: This will increase the challenge of mobility for the patient, his family and therapists. Status: Acute (3) Physical deconditioning: Problem details: Preoperatively had become deconditioned do due to disability from bilateral knee arthritis. Status: Acute (4) Sleep apnea: Problem details: uses CPAP. Opioid pain medicines will make his sleep apnea much worse. He is to be very careful to use CPAP at any time when sleeping. Status: Acute (5) Easy bruisability: Problem details: When taking aspirin. Will use aspirin for VTE prophylaxis Status: Acute (6) Hypertension: Problem details: Continue atenolol with hold parameters. Hold triamterene hydrochlorothiazide for now Status: Acute
[2022-08-14 10:49] VITALS: BP 169/89; PULSE 53; RESP 18; TEMP 36.6
[2022-08-14 12:12] VITALS: BP 169/89; PULSE 53; RESP 18; TEMP 36.6
--- NOTE | 2022-08-14 12:13 | PC.NURSE ---
Discharge: Patient pleasant and cooperative. Up with one assist, walker and gait belt. Tolerating ambulation well, pain managed with PRN medication and cryocuff. IV removed with catheter intact. Discharge instructions and follow ups reviewed with patient and spouse. Patient discharged to home @ 1150 via wheelchair and staff assist.
--- NOTE | 2022-08-14 17:47 | P.DS_ITS ---
DS: Providers Provider Date Seen: 08/14/22 Date of admission: 08/13/22 13:18 Primary care physician: Deny Weber DO Admitting Clinician: Rafi Hansen MD Consults: 08/12/22 13:29 Consult to Occupational Therapy [CONS] Routine Comment: Reason(s) for OT Consult:: ADLs Prior to Discharge Any Restrictions?:: See Comment Comment: See nursing activity order for any restrictions. Consult to Physical Therapy [CONS] Routine Comment: Ambulate in the mayes today. Reason(s) for PT Consult:: TKA TX Protocol POD#0 Any Restrictions?:: See Comment Comment: See nursing activity order for any restrictions. Consult to Physician [CONS] Routine Comment: Consulting Provider: Hospitalists Has provider been notified: No Consult to Band Cutter [CONS] Routine Comment: Reason for Consult:: Discharge Planning Needs Attending Physician on discharge: Rafi Hansen MD Date of Discharge: 08/14/22 DS: Diagnosis Discharge Diagnosis (1) Hypertension: Status: Acute Problem details: Resume home medications for blood pressure (2) Easy bruisability: Status: Acute Problem details: When taking aspirin. Will use aspirin for VTE prophylaxis (3) Sleep apnea: Status: Acute Problem details: uses CPAP. Opioid pain medicines will make his sleep apnea much worse. He is to be very careful to use CPAP at any time when sleeping. (4) Physical deconditioning: Status: Acute Problem details: Making good progress with therapy (5) History of total bilateral knee replacement: Status: Acute Problem details: Bilateral TKA (08/12/2022, Dr. Hansen). (6) Pain management: Status: Acute Problem details: Pain control much improved today. Discussed use of pain medications to allow for walking, therapy and sleep if needed. Laxatives to counter constipation. CPAP to protect from opioid induced apnea DS: Summary Hospital Course Hospital Course: 62-year-old male admitted to the hospital for bilateral total knee arthroplasty. Procedures performed on the day of admission by Dr. Hansen. There were no operative complications. Postoperatively he has had some issues with mobility and pain control. These have improved over the last day. He has moved from needing the assist of 2 to now standby assistance. He is showing good mobility with a walker. Family seems eager and competent to assist him Status at Discharge Cognitive/behavioral status at discharge: Baseline Functional status at discharge: uses cane/walker Overall status at discharge: patient is progressing back to baseline Time Spent with Patient Time attestation: Total time spent providing and/or coordinating discharge services: Time spent: Less than 30 minutes Exam Narrative: Exam Narrative: He is alert and appears in no distress. Speech is normal. Breathing is unlabored. He has no significant edema in his feet. He moves his feet and ankles well. Good capillary perfusion. Const: Vital Signs, click to edit/add: Vital Signs - 24 hr 08/13/22 20:11 08/13/22 23:00 08/13/22 23:00 Temperature 99.2 F Pulse Rate Pulse Rate [Left P ulse Oximeter] 61 60 Respiratory Rate 16 16 Blood Pressure Blood Pressure [Ri ght Arm] 147/75 H Pulse Oximetry 91 94 Oxygen Delivery Me thod CPAP 08/13/22 23:00 08/14/22 03:00 08/14/22 08:23 Temperature 98.2 F Pulse Rate Pulse Rate [Left P ulse Oximeter] 60 62 Respiratory Rate 16 16 Blood Pressure Blood Pressure [Ri ght Arm] 131/66 120/72 Pulse Oximetry 94 90 91 Oxygen Delivery Me thod Room Air CPAP Room Air CPAP 08/14/22 08:25 08/14/22 10:49 08/14/22 12:12 Temperature 97.9 F 97.9 F 97.9 F Pulse Rate 53 L 53 L Pulse Rate [Left P ulse Oximeter] 60 Respiratory Rate 18 18 18 Blood Pressure 169/89 H 169/89 H Blood Pressure [Ri ght Arm] 136/75 Pulse Oximetry 91 Oxygen Delivery Me thod Room Air Documenting provider has reviewed patient's vital signs: yes DS: Data Data Completed and Pending Labs on day of discharge: Labs from last 24 hours 08/14/22 08/14/22 08/14/22 06:38 06:38 06:38 WBC 9.84 RBC 4.08 L Hgb 12.7 L Hct 38.1 MCV 93 MCH 31 MCHC 33 RDW Coeff of Virgen 13.1 Plt Count 142 Neut % (Auto) 70.2 Lymph % (Auto) 13.7 L [place] % (Auto) 12.0 H Eos % (Auto) 3.5 Baso % (Auto) 0.1 Neut # (Auto) 6.91 Lymph # (Auto) 1.30 [place] # (Auto) 1.20 H Eos # (Auto) 0.34 Baso # (Auto) 0.01 INR 1.18 H Sodium 139 Potassium 3.8 BUN 24 Creatinine 1.1 Estimated Creat Clear 70.05 Estimated GFR 75 Discharge Plan Discharge Disposition: Home, Self-Care Date of Admission: 08/13/22 13:18 Consulting Providers: Jorge Luis Blanco Primary Care Provider: Deny Weber Condition: Improved Anticipated Discharge Date/Time: 08/14/22 10:00 Discharge Medications: New celecoxib 200 mg Capsule 200 mg PO BID PRNQty: 25 0RF sennosides [Senna Lax] 8.6 mg Tablet 17.2 mg PO BID PRN (Reason: constipation) Qty: 100 0RF aspirin [Aspirin Childrens] 81 mg tablet,chewable 81 mg PO BID 30 Days Qty: 60 0RF acetaminophen 500 mg capsule 500 - 1,000 mg PO Q6H MDD 4000mg per day PRN (Reason: pain) Qty: 100 0RF oxycodone 5 mg Tablet 2.5 - 5 mg PO Q4-6H MDD 6 tabs per day PRN (Reason: Pain) Qty: 42 0RF Rx Instructions: Minimize. Discontinue as soon as possible Continued atenolol 100 mg tablet 100 mg PO DAILY ergocalciferol (vitamin D2) [Vitamin D2] 1,250 mcg (50,000 unit) capsule 50,000 unit PO MOTH simvastatin 40 mg tablet 40 mg PO HS triamterene-hydrochlorothiazid 37.5-25 mg tablet 1 tab PO DAILY PreserVision AREDS [id number] owux-kn-qhwa capsule 1 cap PO DAILY cholecalciferol (vitamin D3) 125 mcg (5,000 unit) capsule 125 mcg PO DAILY betamethasone dipropionate 0.05 % ointment 1 applic topical BID PRN Discharge Orders: Discharge Order (Routine); Ordered 08/14/22 Ordered By: Lala Marti Patient Education: Acetaminophen (By mouth), Aspirin (By mouth), Oxycodone, Rapid Release (By mouth), Celecoxib (By mouth), Senna (By mouth), Knee Replacement (DC) Activity Level: Activity as Tolerated and No strenuous activity Activity Detail: Keep dressing on for 1 week. Dressing is waterproof. May shower. Surgical glue covers the wound. Attend outpatient physical therapy if scheduled. Ice and elevate operative extremity without restriction. Wear compression stockings for 1 month post surgery. May remove for 1 hour per day. Ambulate every hour throughout the day. If you drive, Do not drive while taking narcotic pain medication. Do not drink alcohol while taking narcotic pain medication. May drive when safe to do so and have full function of the extremities, this may take 6 weeks or more. Notify Orthopedics with any questions or concerns. ([phone]) Follow Up Appointments: Deny Weber DO [Primary Care Provider] - Lala Marti PA-C [Physician Front Of House Manager] - 08/19/22 10:30 am ([facility] Call if you have any questions) Forms: Work/School Release
== END 2022-08-14 11:50 | disposition home or self-care (01) | DRG 462 ==
LOC: OR 13:25 → MEDSURG 13:25
PROVIDERS: Admitting Provider Orthopaedic Surgery; PCP Family Medicine; Visit Provider Orthopaedic Surgery
PROC: 0SRC0JZ Replacement of Right Knee Joint with Synthetic Substitute, Open Approach (ICD-10-PCS; CPT 27447; principal; 2022-08-12 07:30)
DX: M17.0 Bilateral primary osteoarthritis of knee (principal); Z68.41 Body mass index [BMI] 40.0-44.9, adult; G89.18 Other acute postprocedural pain; G47.30 Sleep apnea, unspecified; I12.9 Hypertensive chronic kidney disease with stage 1 through stage 4 chronic kidney disease, or unspecified chronic kidney disease; N18.31 Chronic kidney disease, stage 3a; E66.9 Obesity, unspecified; R23.3 Spontaneous ecchymoses
CPT/HCPCS: 01402; 36415; 64447; 64454; 73560; 76942; 82565; 84132; 84295; 84520; 85025; 85610; 97110; 97116; 97162; 97165; 97530; 97535; A9270; C1776; C9290; J0171; J0690; J1100; J1170; J2250; J2370; J2405; J2704; J3010; J3490; J7120

== ENCOUNTER 2022-09-25 10:45 | Outpatient (RCR) | payer OTHER, SELFPAY | END 2022-09-25 15:28 | disposition home or self-care (01) | PROVIDERS: PCP Family Medicine; Visit Provider Orthopaedic Surgery | DX: M17.0 Bilateral primary osteoarthritis of knee (principal); Z51.89 Encounter for other specified aftercare | CPT/HCPCS: 97110; 97161; 97164 ==

== ENCOUNTER 2023-08-04 11:50 | Outpatient (CLI) | payer OTHER, SELFPAY ==
--- OUTSIDE RECORDS SUMMARY | 2023-08-04 11:53 | XMS_ITS | Referral Summary ---
Author Name Unknown Organization [facility] Address [address] [place] [address] Care Team Providers Care Support Services Tech Name Role Phone Elsewhere, Pcp Primary Care Provider Unavailabl e Source Comments Patient records contain information from all sites at [facility]. For routine questions regarding patient records, call [phone] during business hours, M-F 8:00 AM - 5:00 PM Central Time. Record requests for emergency care only can be directed to [phone] at any time.[facility] Allergies No known active allergies Medications Medication Sig Dispensed Refills Start Date End Date Status simvastatin (ZOCOR) 40 mg tablet Take 1 tablet by mouth at bedtime. 0 09/04/2014 Active hydroCHLOROthiazide (HYDRODIURIL) 25 mg tablet Take 1 tablet by mouth daily. 0 10/08/2014 Active ADULT LOW DOSE ASPIRIN ORAL Take 1 tablet by mouth daily. 0 11/27/2009 Active atenolol (TENORMIN) 100 mg tablet Take 1 tablet by mouth daily. 0 10/17/2014 Active vitamins A,C,L-skco-bqxnoq (PRESERVISION AREDS) 7,160 Units-113 mg-100 Units per tablet Take 1 tablet by mouth daily. 0 Active Active Problems Problem Noted Date Diagnosed Date Nevus Iris Left 04/02/2022 Hypertension 11/29/2009 Overview: HTN [Hypertension] Immunizations Name Administration Dates Next Due Td Preservative Free (TENIVAC, DECAVAC) 01/16/20 06 Tdap 09/04/2014 Social History Tobacco Use Types Packs/Day Years Used Date Smoking Tobacco: Never Nutrition Answer Date Recorded Nutrition: EVOO Fat Source Unknown 09/18 Nutrition: Servings of Fruits/Vegetables per Day Not on file 09/18/2020 Dental Answer Date Recorded Dental: Regular Dentist Unknown 09/19/19 21 Sex and Gender Information Value Date Recorded Sex Assigned at Not on file Gender Identity Not on file Sexual Orientation Not on file Last Filed Vital Signs Vital Sign Reading Time Taken Comments Blood Pressure 129/74 10/22/2014 3:10 PM CDT Pulse 56 10/22/2014 3:10 PM CDT Temperature - - Respiratory Rate 20 10/17/2014 3:57 PM CDT Oxygen Saturation - - Inhaled Oxygen Concentration - - Weight 129 kg (284 lb 8.1 oz) 10/22/2014 3:10 PM CDT Height 180 cm (5' 10.87) 10/24/2014 4:19 PM CDT Body Mass Index 39.83 10/22/2014 3:10 PM CDT Plan of Treatment Not on file Care Teams Support Services Tech Relationship Specialty Start Date End Date Elsewhere, Pcp PCP - General Family Medicine 12/27/20
--- OUTSIDE RECORDS SUMMARY | 2023-08-04 11:53 | XMS_ITS ---
Author Name Unknown Organization [facility] Address [address] [place] [address] Care Team Providers Care Substance Addiction Coordinator Name Role Phone Unavailable Unavailable Unavailable Surgery Details Not on file Complications Check Surgery Details section. Procedure Estimated Blood Loss Check Surgery Details section. Procedure Findings Check Surgery Details section. Procedure Specimens Taken Check Surgery Details section.
--- OUTSIDE RECORDS SUMMARY | 2023-08-04 11:53 | XMS_ITS | Clinical Summary ---
Author Name Unknown Organization [facility] Address [address] [place] [address] Care Team Providers Care Water Technician Name Role Phone Elsewhere, Pcp Primary Care Provider Unavailabl e Source Comments Patient records contain information from all sites at [facility]. For routine questions regarding patient records, call [phone] during business hours, M-F 8:00 AM - 5:00 PM Central Time. Record requests for emergency care only can be directed to [phone] at any time.[facility] Allergies No known active allergies Medications Medication [...] by mouth daily. 0 10/17/2014 Active vitamins A,C,P-dpka-fbomlk (PRESERVISION AREDS) 7,160 Units-113 mg-100 Units per [...] 10/22/2014 3:10 PM CDT Plan of Treatment Health Maintenance Due Date Last Done Comments CT Colonography 1960 Cologuard 1960 HIV Screening 1960 Hepatitis C Screening 1960 Zoster Vaccines (1 of 2) 2008 Office Visit for Blood Press ure Check / Re-check 10/26/2018 10/26/2017 (Performed elsewhere) Creatinine Level (Kidney Fun ction Test) 10/31/2022 10/31/2021, 07/31/2020, 05/01/2019, Additional history exists Potassium Level 10/31/2022 10/31/2021, 07/19, 05/01/2019, Additional history exists Sodium Level 10/31/2022 10/31/2021, 07/19, 05/01/2019, Additional history exists Pneumococcal vaccine (65+ ye ars) (1 of 1 - PCV) 2023 Colonoscopy 05/19/2023 05/19/2018, 08/17/2011 Colorectal Cancer Surveillance 05/19/2023 Depression Screening (Annual PHQ-2) 07/19/2023 Fall Risk Screen (Annual) 07/19/2023 DTaP,Tdap,and Td Vaccines (2 - Td or Tdap) 09/04/2024 09/04/2014, 01/15/2006, 01/15/2006 Fasting Glucose for Diabetes Screening 10/31/2024 10/31/2021, 07/31/2020, 05/01/2019, Additional history exists Influenza Vaccine Completed 06/11/2023, 07/16/2020 COVID-19 Vaccine Completed 07/02/2023, 11/2020, 10/09/2020 Care Teams Water Technician Relationship Specialty Start Date End Date Elsewhere, Pcp PCP - General Family Medicine 12/27/20
--- OUTSIDE RECORDS SUMMARY | 2023-08-04 11:54 | XMS_ITS | Clinical Summary ---
Author Name Unknown Organization [facility] Address [place], [place] [address] Care Team Providers Care Video Network Engineer Name Role Phone Deny Weber DO Primary Care Provider [phone] Allergies No known active allergies Medications Medication Sig Dispensed Refills Start Date End Date Status VITAMINS A,C,C-JYWQ-GAJQQK (PRESERVISION AREDS) 2,148 mcg-113 mg-45 mg-17.4mg tablet Take 1 Tablet by mouth once daily. 0 Active triamterene-hydroch lorothiazide, 37.5-25 mg, (MAXZIDE-25) 37.5-25 mg tabletIndications:H TN (hypertension) Take 1 Tablet by mouth once daily. 90 Tablet 4 07/20/2022 Active atenoloL (TENORMIN) 100 mg tabletIndications:H TN (hypertension) Take 1 Tablet (100 mg) by mouth once daily. 90 Tablet 4 07/20/2022 Active simvastatin (ZOCOR) 40 mg tabletIndications:H TN (hypertension) Take 1 Tablet (40 mg) by mouth at bedtime. 90 Tablet 4 07/20/2022 Active betamethasone dipropionate 0.05% (DIPROSONE 0.05% OINTMENT) 0.05 % ointmentIndications :Dermatitis Apply topically to affected area(s) two times daily. 45 g 2 07/20/2022 Active CPAPIndications:RYDER on CPAP CPAP machine for home use at pressure, auto-titrate 4-20:,Heated humidifier x1, Humidifier chamber x1, Full face mask withcushion x 1, Heated tubing x 1, Headgear x 1, Filters: Disposable x1pk & Reusable x 1pk, Length of Need: 99 mths, Frequency of use: Daily 1 Each 0 07/20/2022 Active cholecalciferol (VITAMIN D3) 5,000 unit capsuleIndications: Vitamin D deficiency Take 1 Capsule (5,000 units) by mouth once daily. 90 Capsule 1 08/05/2022 Active polyethylene glycol-electrolyte (GOLYTELY) 236-22.74-6.74 -5.86 gram suspensionIndicatio ns:Encounter for screening colonoscopy Drink 2 liters the day before the procedure and 2 liters 6 hours prior to procedure. 4000 mL 0 03/04/2023 Active Hospital, Clinic, or Other Facility Administered Medication Ordered Dose Route Frequency Start Date End Date Status NaCl 0.9% 250 mL infusionIndications:COVID-19 25 mL/hr IV CONTINUOUS 10/18/2020 Active Active Problems Problem Noted Date Diagnosed Date Dilated aortic root 03/04/2023 Stage 3a chronic kidney disease 07/22/2022 Skin cancer 07/09/2020 Overview: 06/2020- BCC, Vertex scalp: MOHS 07/23/2020 Allie History of colon polyps 11/04/2017 Overview: Colonoscopy 06/2023 hyperplastic polyp, repeat in 5 years RYDER on CPAP 01/31/2014 HTN (hypertension) 12/07/2013 Resolved Problems Problem Noted Date Diagnosed Date Resolved Date Right inguinal hernia 2017 Encounters Date Type Department Care Team Description 07/02/2023 4:00 PM ENERGY CONSERVATION REPRESENTATIVE Nurse/Clinic Staff Only [address] [place] [address] Immunization/Injecti on (COVID-19 vaccine) 07/02/2023 Travel 06/18/2023 9:30 AM ENERGY CONSERVATION REPRESENTATIVE Procedure Only [facility] [address] [place] [facility] [place] [address] Leonard Loera MD Procedure (Colonoscopy) 06/18/2023 Travel 06/11/2023 3:45 PM ENERGY CONSERVATION REPRESENTATIVE Nurse/Clinic Staff Only [address] [place] [address] Immunization/Injecti on (Flu ) 06/11/2023 Travel 06/11/2023 Telephone [facility] [address] [place] [address] Leonard Loera MD Appointment Reminder (Colonoscopy) from Last 3 Months Immunizations Name Administration Dates Next Due COVID-19 Vaccine Spikevax (M oderna 50mcg/0.5mL) 12YO+ 1135-4226 Formula PF 07/02/2023 COVID-19 vaccine (Moderna 100mcg/0.5mL) PF, MDV 10/09/2020 Influenza, IIV4 07/16/2020 Influenza, Inactivated AIIV4 (Age 65+ Years) Preserv Free 06/11/2023 Td (Age >=7 Years) 01/15/2006 Tdap 09/04/2014 Family History Medical History Relation Name Comments Lumbar disc disease Brother Hypertension Father Cancer Mother kidney cancer Dementia Paternal Grandmother Relation Name Status Comments Brother Father Mother Paternal Grandmother Social History Tobacco Use Types Packs/Day Years Used Date Smoking Tobacco: Never Passive Smoke Exposure: Never Smokeless Tobacco: Never Tobacco Cessation:Counseling Given: Not Answered Alcohol Use Standard Drinks/Week Comments No 0 (1 standard drink = 0.6 oz pur e alcohol) PHQ-2 Answer Date Recorded PHQ-2 TOTAL SCORE 0 07/20/2022 Social Connections Answer Date Recorded Frequency of Communication with Friends and Fami ly Not on file 07/21/2023 Financial Resource Strain Answer Date R ecorded Difficulty of Paying Living Expenses 3 07/19/2022 Difficulty of Paying Living Expenses Not on file 07/19/2022 Food Insecurity Answer Date Recorded Worried About Running Out of Food in the Last Ye ar 1 07/19/2022 Transportation Needs Answer Date Record ed Lack of Transportation (Medical) 1 07/19/2022 Housing Stability Answer Date Recorded Unable to Pay for Housing in the Last Year 1 07/19/2022 Sex and Gender Information Value Date Recorded Sex Assigned at Not on file Gender Identity Not on file Sexual Orientation Not on file Obstetrics History Last Filed Vital Signs Vital Sign Reading Time Taken Comments Blood Pressure 143/65 06/18/2023 10:49 AM ENERGY CONSERVATION REPRESENTATIVE Pulse 53 06/18/2023 10:49 AM ENERGY CONSERVATION REPRESENTATIVE Temperature 36.8 ??C (98.3 ??F) 01/11/2023 5:31 PM CD T Respiratory Rate 14 06/18/2023 10:4 9 AM ENERGY CONSERVATION REPRESENTATIVE Oxygen Saturation 94% 06/18/2023 10: 49 AM ENERGY CONSERVATION REPRESENTATIVE Inhaled Oxygen Concentration - - Weight 129.8 kg (286 lb 1.6 oz) 03/04/2023 2:14 PM CDT Height 180.3 cm (5' 11) 01/14/2023 4:07 PM CDT Body Mass Index 39.9 01/14/2023 4:07 PM CDT Plan of Treatment Health Maintenance Due Date Last Done Comments HIV for age 15-65 1973 Zoster (shingles) series for age 50+ (1 of 2) 2008 Pneumococcal series for age 65+ (1 of 1 - PCV) 2023 Depression screening for age 12+ 07/23/2023 07/23/2022, 07/20/2022, 07/16/2020, Additional history exists BMI (ht and wt on same day) for age 18+ 01/15/2024 01/14/2023, 07/20/2022, 10/31/2021, Additional history exists Tetanus booster 09/04/2024 09/04/2014, 01/15/2006 Lipids for age 45-75 03/04/2028 03/04/2023, 10/31/2021, 05/01/2019, Additional history exists Colonoscopy through age 75 06/18/202806/18, 06/18/2023, 06/18/2023, Additional history exists Tdap Completed 09/04/2014 Hepatitis C screening for ag e 18-79 Completed 05/01/2019 Influenza for age 65+ Completed 06/11/2023, 020 COVID-19 vaccine series Completed 07/02/20 23, 01/20/2021, 10/09/2020 Medical Devices Implanted Type Area Cooky Machine Operator Device Identifier Shelf Expiration Date Model / Serial / Lot Mesh Ventralex Hernia Patch (S) #[id number] - [id number] Implanted:Qty: 1 on 12/12/2013 by Edwardo Joseph MD at [facility] N/A: Abdomen D-BARD 09/16/2015 [id number] / / [id number] Mesh Surgical 3in X 6in #[id number] - [id number] Implanted:Qty: 1 on 08/11/2016 by Edwardo Joseph MD at [facility] Right: Inguinal D-BARD 04/15/2021 [id number] / / [id number] Procedures Procedure Name Priority Date/Time Associated Diagnosis Comments PATH TISSUE EXAM Routine 06/18/2023 10:2 7 AM ENERGY CONSERVATION REPRESENTATIVE History of colon polyps Polyp of colon, unspecified part of colon, unspecified type COLONOSCOPY 06/18/2023 9:49 AM ENERGY CONSERVATION REPRESENTATIVE COLONOSCOPY SCREENING Routine 06/18/2023 9:08 AM ENERGY CONSERVATION REPRESENTATIVE History of colon polyps from Last 3 Months Results * PATH TISSUE EXAM (06/18/2023 10:27 AM ENERGY CONSERVATION REPRESENTATIVE) Case Report Pathology Report ?Case: [id number] ? Authorizing Provider: ??Leonard Loera MD ?? Collected: ? 06/18/2023 1027 ? Ordering Location: ? [facility] ?? Received: ?06/18/2023 1556 ? Clinic ? Pathologist: ? Josesito Hinton MD ? Specimen: ?Sigmoid Polyp ? 06/22/2023 2:01 PM [facility] Final Diagnosis A) COLON, SIGMOID, POLYPECTOMY: 1. Hyperplastic polyp 06/22/2023 2:01 PM [facility] Clinical Information Mr. Lee is a 63 y.o. undergoing surveillance colonoscopy. Colonoscopy findings: Single polyp in the sigmoid colon, completely removed. Sigmoid colon diverticulosis. 06/22/2023 2:01 PM [facility] Gross Description A) Received in formalin is a francisco mucosal fragment measuring 2 mm in greatest dimension, which is entirely submitted in one cassette. It is labeled with the patient's name and designated A. Joseph Wiggins Derek 06/21/2023 1:25 PM 06/22/2023 2:01 PM [facility] Microscopic Description The final diagnosis is based on microscopic examination of appropriate sections of all specimens. 06/22/2023 2:01 PM [facility] Additional Information Interpreted at [facility] - [address], [place] [address] 06/22/2023 2:01 PM [facility] Other (Sigmoid Polyp) Non-Blood / Unknown 06/18/2023 10:27 AM ENERGY CONSERVATION REPRESENTATIVE 06/18/2023 3:56 PM ENERGY CONSERVATION REPRESENTATIVE Leonard Loera MD PATHOLOGY/CYTOLOG Y [facility] [address] [place] [address], * COLONOSCOPY (06/18/2023 9:49 AM ENERGY CONSERVATION REPRESENTATIVE) 06/18/2023 9:49 AM ENERGY CONSERVATION REPRESENTATIVE Narrative Transcriptions Leonard Loera MD - 06/18/2023 10:34 AM CST Patient Name: Phuc Lee Procedure Date: 06/18/2023 Gender: Male Date of : 1960 Admit Type: Outpatient Procedure: Colonoscopy Proceduralist: Leonard Loera MD , Swathi Mccarthy (Nurse), Fadumo Renae (Nurse) Referring MD: Deny Weber Indications/Pre-Op Diagnosis: High risk colon cancer surveillance:Personal history of multiple (3 or more) adenomas,Last colonoscopy: May 2018 Medications: Fentanyl 100 micrograms IV, Midazolam 2 mgIV, The level of sedation administered wasmoderate Procedure Description: The patient had risks, benefits and alternatives explained to andgave informed consent. The patient had a stable cardiopulmonary status and judged an adequate candidate for conscious sedation. The endoscope [id number] was passed through the anus andadvanced to the terminal ileum, with identification of the appendiceal orifice and IC valve. The colonoscopy was performed without difficulty. The patient tolerated the procedure well. The quality of the bowel preparation was good. The ileocecal valve, appendiceal orifice, and rectum were photographed. Complications: No immediate complications. Estimated Blood Loss & Specimen: Estimated blood loss: none. Specimen collected - Yes and sent to Laboratory Findings: The perianal and digital rectal examinations were normal. A few small-mouthed diverticula were found in the sigmoid colon. A 1 mm polyp was found in the sigmoid colon. The polyp was sessile.The polyp was removed with a cold biopsy forceps. Resection and retrieval were complete. The exam was otherwise without abnormality. Impressions/Post-Op Diagnosis: - Diverticulosis in the sigmoid colon. - One 1 mm polyp in the sigmoid colon, removed with a cold biopsy forceps. Resected and retrieved. - The examination was otherwise normal. Recommendation: - Patient has a contact number available for emergencies. The signsand symptoms of potential delayed complications were discussed with the patient. Return to normal activities tomorrow. Written discharge instructions were provided to the patient. - Resume previous diet. - Continue present medications. - Await pathology results. - Repeat colonoscopy is recommended. The colonoscopy date will be determined after pathology results from today's exam become available for review. Moderate Sedation: A time out was performed before the procedure. Moderate (conscious) sedation was administered by the endoscopy nurse and supervised bythe endoscopist. The following parameters were monitored: oxygensaturation, heart rate, blood pressure, EKG, CO2, respiratory rate, adequacy of pulmonary ventilation and reponse to care. Please refer to the patient's medical record flowsheets and nursing notes for moderate sedation details. Total physician intraservice time was 14 minutes. Leonard Loera MD 06/18/2023 10:34:23 AM This report has been signed electronically. Note Initiated On: 06/18/2023 9:49 AM Procedure Code(s): --- Professional --- 06260, Colonoscopy, flexible; with biopsy, single or multiple Diagnosis Code(s): --- Professional --- Z86.010, Personal history of colonicpolyps D12.5, Benign neoplasm of sigmoid colon K57.30, Diverticulosis of large intestine without perforation or abscess withoutbleeding CPT copyright 2021 [employer]. All rights reserved. The codes documented in this report are preliminary and upon certified coder reviewmay be revised to meet current compliance requirements. Scope In: 10:16:53 AM Scope Withdrawal Time 0 hours 9 minutes 26 seconds Scope Out: 10:29:57 AM Leonard Loera MD PROCEDURE ORD from Last 3 Months Advance Directives Latest Code Status on File Code Status Date Activated Date Inactivated Comments Full Code 08/11/2016 4:36 PM 08/11/2016 7:46 PM Code Status History Code Status Date Activated Date Inactivated Comments Full Code 08/10/2016 2:39 PM 08/11/2016 4:36 PM Full Code 01/11/2012 1:28 PM 01/11/2012 6:59 PM Full Code 01/11/2012 12:18 PM 01/11/2012 1:28 PM Full Code 08/17/2011 6:08 AM 08/17/2011 11:06 AM Care Teams Video Network Engineer Relationship Specialty Start Date End Date Deny Weber DO [address] [place] [address] PCP - General Family Practice 07/08/17
== END 2023-08-04 11:51 | disposition home or self-care (01) ==
PROVIDERS: PCP Family Medicine; Visit Provider Family Medicine
DX: I10 Essential (primary) hypertension (principal); E78.2 Mixed hyperlipidemia; Z12.5 Encounter for screening for malignant neoplasm of prostate
CPT/HCPCS: 80048; 80061; 84460; G0103

== ENCOUNTER 2024-01-31 18:06 | Emergency (ER) | payer OTHER, SELFPAY ==
[2024-01-31 18:18] VITALS: BP 186/102; PULSE 53; RESP 16; TEMP 36.6; O2SAT 94; BMI 40.9
--- NOTE | 2024-01-31 19:40 | ED_ITS ---
HPI - General Adult General Date Seen: 01/31/24 Chief complaint: Hypertension Stated complaint: hypertension Time Seen by Provider: 01/31/24 19:40 History of Present Illness HPI narrative: This is a 63-year-old male with a history of chronic kidney disease, hyperl ipidemia, hypertension, sleep apnea, elevated BMI, bilateral knee replacements. He was sent to the ER today by his dental hygienist. He was at the dentist to be worked on him blood pressure was 258/128. He normally takes atenolol and hydrochlorothiazide for hypertension. He has otherwise been feeling fine lately. No headache. No blurry vision. No focal numbness or weakness. No slurred speech or facial droop. No stroke symptoms. No dizziness. No chest pain. No trouble breathing. No swelling in his legs. He notes that he used to have trouble with swelling in his legs but that is actually better after he had his knees replaced. He has been taking his blood pressure medications recently. He has no complaints but because his blood pressure was elevated at the dentist office and again when he recheck that at home, he came to the ER. His most recent checkups in the clinic have been with his primary care provider and his blood pressure was in the 130s range systolic at that time. Diastolics typically in the 80s. He has never had a blood pressure of 258/128 Related Data Home Medications ?Medication ?Instructions ?Recorded ?Confirmed betamethasone dipropionate 0.05 % 1 applic topical BID PRN 08/11/22 01/19/24 topical ointment vitamins A,C,U-juih-oxvfex 4,296 1 cap PO DAILY 08/11/22 01/19/24 mcg-226 mg-90 mg capsule (PreserVision AREDS) oxygen-air delivery systems 08/04/23 01/19/24 Previous Rx's ?Medication ?Instructions ?Recorded atenolol 100 mg tablet 100 mg PO DAILY #90 tabs 08/15/23 simvastatin 40 mg tablet 40 mg PO HS #90 tabs 08/15/23 cholecalciferol (vitamin D3) 125 125 mcg PO DAILY #90 caps 12/10/23 mcg (5,000 unit) capsule triamterene 37.5 1 tab PO DAILY #90 tabs 12/10/23 mg-hydrochlorothiazide 25 mg tablet lisinopril 20 mg tablet 20 mg PO DAILY #20 tabs 01/31/24 lisinopril 20 mg tablet 20 mg PO DAILY #20 tabs 01/31/24 Allergies Allergy/AdvReac Type Severity Reaction Status Date / Time No Known Drug Allergies Allergy Verified 01/19/24 14:14 [facility] Medical History (Updated 01/31/24 @ 21:24 by Hakeem Almanzar MD) Obstructive sleep apnea on CPAP ?G47.33 - Obstructive sleep apnea (adult) (pediatric) (ICD-10) Primary hypertension ?I10 - Essential (primary) hypertension (ICD-10) Mixed hyperlipidemia ?E78.2 - Mixed hyperlipidemia (ICD-10) Chronic low back pain (2009) ?M54.50 - Low back pain, unspecified (ICD-10) ?G89.29 - Other chronic pain (ICD-10) History of vitamin D deficiency ?Z86.39 - Personal history of other endocrine, nutritional and metabolic disease (ICD-10) History of colon polyps ?Z86.010 - Personal history of colonic polyps (ICD-10) Obesity ?E66.9 - Obesity, unspecified (ICD-10) Stage 3a chronic kidney disease ?N18.31 - Chronic kidney disease, stage 3a (ICD-10) Surgical History (Updated 08/16/23 @ 08:24 by Geetha Pérez) History of basal cell cancer ?Z85.828 - Personal history of other malignant neoplasm of skin (ICD-10) History of tonsillectomy ?Z90.89 - Acquired absence of other organs (ICD-10) History of total bilateral knee replacement (08/12/22) ?Z96.653 - Presence of artificial knee joint, bilateral (ICD-10) H/O arthroscopy of knee ?Z98.890 - Other specified postprocedural states (ICD-10) H/O hernia repair ?Z98.890 - Other specified postprocedural states (ICD-10) ?Z87.19 - Personal history of other diseases of the digestive system (ICD-10) Family History (Updated 04/22/23 @ 10:56 by Areli Lewis) Father Lung cancer Colon cancer, Onset Age: 55 Mother Cancer of kidney, Onset Age: 62 High blood pressure Sister High blood pressure Brother High blood pressure Aunt Diabetes Uncle Colon cancer, Onset Age: 70 Paternal Grandfather Colon cancer, Onset Age: 78 Social History Narrative: , four kids, 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, nonsmoker, no EtOH Smoking Status: Never smoker Do you use any of these nicotine containing products: None How often do you have a drink containing alcohol: monthly or less Alcohol type: beer How many standard drinks containing alcohol do you have on a typical day: 1 or 2 How often do you have six or more drinks on one occasion: Never AUDIT-C Alcohol total score: 1 Non-prescribed substance use: denies use Caffeine: Yes (Diet Pepsi, 3-4 cans/day) Little interest or pleasure in doing things: not at all Feeling down, depressed, or hopeless: not at all Exam Narrative: Exam Narrative: Constitutional: Appears well-developed and well-nourished. Alert. Conversant. Non toxic. HENT: Head: Atraumatic. Nose: Nose normal. Mouth/Throat: Oral mucosa is clear and moist. no trismus. Pharynx normal. Tonsils symmetric. No tonsillar enlargement, erythema, or exudate. Eyes: Conjunctivae normal. EOM normal. Pupils equal, round, and reactive to light. No scleral icterus. Neck: Normal range of motion. Neck supple. No tracheal deviation present. No JVD Cardiovascular: Normal rate, regular rhythm. No gallop. No friction rub. No murmur heard. Symmetric radial artery pulses Pulmonary/Chest: Effort normal. No stridor. No respiratory distress. No wheezes. No rales. No rhonchi . No tenderness. Musculoskeletal: RUE: Normal range of motion. No tenderness. No deformity LUE: Normal range of motion. No tenderness. No deformity RLE: Normal range of motion. No edema. No tenderness. No deformity LLE: Normal range of motion. No edema. No tenderness. No deformity Neurological: Alert and oriented to person, place, and time. Normal strength. CN II-VII intact. No sensory deficit. GCS eye subscore is 4. GCS verbal subscore is 5. GCS motor subscore is 6. Normal coordination no focal deficit Skin: Skin is warm and dry. No rash noted. No pallor. Normal capillary refill. Psychiatric: Normal mood. Normal affect. Const: Vital Signs, click to edit/add: Vital Signs - 24 hr 01/31/24 18:18 01/31/24 21:01 Temperature 97.8 F Pulse Rate [Pulse Oximeter] 53 L 48 L Respiratory Rate 16 16 Blood Pressure [Ri ght Upper Arm] 186/102 H 196/112 H Pulse Oximetry 94 96 Oxygen Delivery Me thod Room Air Room Air Course Vital Signs Vital signs: Initial Vital Signs Temperature 97.8 F 01/31/24 18:18 Temperature Source Temporal Artery Scan 01/31/24 18:18 Pulse Rate 53 L 01/31/24 18:18 Pulse Rhythm Regular 01/31/24 18:18 Respiratory Rate 16 01/31/24 18:18 Blood Pressure 186/102 H 01/31/24 18:18 Blood Pressure Mean 130 H 01/31/24 18:18 Blood Pressure Position Sitting 01/31/24 18:18 Pulse Oximetry 94 01/31/24 18:18 Oxygen Delivery Method Room Air 01/31/24 18:18 Vital Signs Temperature 97.8 F 01/31/24 18:18 Pulse Rate 53 L 01/31/24 18:18 Respiratory Rate 16 01/31/24 18:18 Blood Pressure 186/102 H 01/31/24 18:18 Pulse Oximetry 94 01/31/24 18:18 Oxygen Delivery Method Room Air 01/31/24 18:18 Temperature 97.8 F 01/31/24 18:18 Pulse Rate 48 L 01/31/24 21:01 Respiratory Rate 16 01/31/24 21:01 Blood Pressure 196/112 H 01/31/24 21:01 Pulse Oximetry 96 01/31/24 21:01 Oxygen Delivery Method Room Air 01/31/24 21:01 Medical Decision Making [facility] Narrative Medical decision making narrative: This patient presents for evaluation of elevated blood pressure. There is unknown history of hypertension in the past. He is already on atenolol, triamterene/hydrochlorothiazide. No concerning symptoms of chest pain , severe headache, neurologic deficits. The workup here is negative and the patient does not have any clinical, laboratory, ecg or historical signs of end-organ dysfunction. There is no signs of hypertensive emergency or urgency. Supportive outpatient management is therefore indicated with close follow-up of primary care physician. Given data obtained here in ED, will add lisinopril 20 mg daily for therapy at this time and encouraged serial blood pressure monitoring at home to aid primary in decision making regarding hypertension. Follow-up with primary care within 1 week for blood pressure recheck. Precautions for return to the ER reviewed. Lab Data Labs: Lab Results 01/31/24 Range/Units 20:25 Sodium 137 (135-149) mmol/L Potassium 3.9 (3.6-5.1) mmol/L Chloride 105 (96-114) mmol/L Carbon Dioxide 26 (20-32) mmol/L Anion Gap 6 L (7-15) mEq/L BUN 14 (7-30) mg/dL Creatinine 1.1 (0.5-1.5) mg/dL Estimated Creat Clear 69.13 Estimated GFR 75 ml/min Glucose 120 H (60-115) mg/dL Calcium 9.5 (8.4-10.6) mg/dL Troponin I < 0.01 L (0.01-0.04) ng/mL ECG Data Attestation: I personally reviewed and interpreted this ECG as follows: Interpretation: Sinus bradycardia Rate: 50 FL: 202 QRS axis: Normal axis. No pathologic Q-waves. ST segment/T wave: No ST segment elevation or depression QTc: 384 Discharge Plan Discharge Clinical Impression: Hypertension Patient Disposition: Home, Self-Care Condition: Stable Instructions: Hypertension (ED) Additional Instructions: Please start the new blood pressure medication (lisinopril) and continue your to previous medications. Check your blood pressure once per day and keep a record of your blood pressure measurements for your regular doctor. Please follow-up with Dr. Harrison or 1 of his partners in the clinic within 1 week for another blood pressure check. Bring your blood pressure cuff from home with you so we can make sure that it correlates with the clinics blood pressure cuff. Your doctor will likely have to further adjust your blood pressure medications. If he develops any concerning symptoms such as chest pain, trouble breathing, headache, blurry vision, unusual numbness or weakness in your arms or legs, facial droop, or any problems, return to the ER immediately. Prescriptions: New lisinopril 20 mg tablet 20 mg PO DAILY Qty: 20 2RF lisinopril 20 mg tablet 20 mg PO DAILY Qty: 20 0RF No Action (DME) oxygen-air delivery systems Device See Rx Instructions .Route Rx Instructions: As directed atenolol 100 mg tablet 100 mg PO DAILY Qty: 90 3RF simvastatin 40 mg tablet 40 mg PO HS Qty: 90 3RF PreserVision AREDS 14,320-226-200 bhcp-sb-tqih capsule 1 cap PO DAILY betamethasone dipropionate 0.05 % ointment 1 applic topical BID PRN triamterene-hydrochlorothiazid 37.5-25 mg tablet 1 tab PO DAILY Qty: 90 1RF cholecalciferol (vitamin D3) 125 mcg (5,000 unit) capsule 125 mcg PO DAILY Qty: 90 1RF Follow Up/Referrals: Jeffery Harrison MD [Primary Care Provider] - Stand Alone Forms: [facility] Info Instructions
--- OUTSIDE RECORDS SUMMARY | 2024-01-31 20:42 | XMS_ITS | Clinical Summary ---
Author Organization [facility] Address [address] [place] [address] Care Team Providers Care Garage Manager Name Role Phone Elsewhere, Pcp Primary Care Provider Unavailabl e Source Comments Patient records contain information from all sites at [facility]. For routine questions regarding patient records, call [phone] during business hours, M-F 8:00 AM - 5:00 PM Central Time. Record requests for emergency care only can be directed to [phone] at any time.[facility] Allergies No known active allergies Medications Medication Sig Dispensed Refills Start Date End Date Status simvastatin (ZOCOR) 40 mg tablet Take 1 tablet by mouth at bedtime. 09/04/2014 Active hydroCHLOROthiazide (HYDRODIURIL) 25 mg tablet Take 1 tablet by mouth daily. 10/08/2014 Active ADULT LOW DOSE ASPIRIN ORAL Take 1 tablet by mouth daily. 11/27/2009 Active atenolol (TENORMIN) 100 mg tablet Take 1 tablet by mouth daily. 10/17/2014 Active vitamins A,C,J-rjoe-emqezj (PRESERVISION AREDS) 7,160 Units-113 mg-100 Units per tablet Take 1 tablet by mouth daily. Active Active Problems Problem Noted Date Diagnosed [...] PHQ-2) 07/19/2023 Fall Risk Screen (Annual) 07/19/2023 COVID-19 Vaccine (4 - 2022-2 4 season) 2023 07/02/2023, 01/20/2021, 10/09/2020 Influenza Vaccine (#1) 2024 06/11/2023, 2019 DTaP,Tdap,and Td Vaccines (2 - Td or Tdap) 09/04/2024 09/04/2014, 01/15/2006 Fasting Glucose for Diabetes Screening 10/31/2024 10/31/2021, 07/31/2020, 05/01/2019, Additional history exists Procedures Procedure Name Priority Date/Time Associated Diagnosis Comments EXTI COMPREHENSIVE METABOLIC PANEL, S/P Routine 10/31/2021 4:37 PM CDT from Last 3 Months or Most Recently Relevant to Health Maintenance Care Teams Garage Manager Relationship Specialty Start Date End Date Elsewhere, Pcp PCP - General Family Medicine 12/27/20
--- OUTSIDE RECORDS SUMMARY | 2024-01-31 20:43 | XMS_ITS | Clinical Summary ---
Author Organization [facility] Address [place], [place] [address] Care Team Providers Care Stave Log Cut Off Saw Operator Name Role Phone Unavailable Primary Care Provider Unavailabl e Allergies No known active allergies Medications Medication Sig Dispensed Refills Start Date End Date Status VITAMINS A,C,Q-VPAV-MKZVGZ (PRESERVISION AREDS) 2,148 mcg-113 mg-45 mg-17.4mg tablet Take 1 Tablet by mouth once daily. Active triamterene-hydroch lorothiazide, 37.5-25 mg, (MAXZIDE-25) 37.5-25 [...] mths, Frequency of use: Daily 1 Each 07/20/2022 Active polyethylene glycol-electrolyte (GOLYTELY) 236-22.74-6.74 -5.86 gram suspensionIndicatio ns:Encounter for screening colonoscopy Drink 2 liters the day before the procedure and 2 liters 6 hours prior to procedure. 4000 mL 03/04/2023 Active atenoloL (TENORMIN) 100 mg tablet Take 1 Tablet (100 mg) by mouth once daily. 90 Tablet 3 08/15/2023 Active simvastatin (ZOCOR) 40 mg tablet Take 1 Tablet (40 mg) by mouth at bedtime. 90 Tablet 3 08/15/2023 Active cholecalciferol (VITAMIN D3) 5,000 unit capsule Take 1 Capsule (125 mcg) by mouth once daily. 90 Capsule 1 12/10/2023 Active triamterene-hydroch lorothiazide, 37.5-25 mg, (MAXZIDE-25) 37.5-25 mg tablet 1 tab orally daily 90 Tablet 1 12/10/2023 Active Hospital, Clinic, or Other Facility Administered [...] Date Resolved Date Right inguinal hernia 2017 Immunizations Name Administration Dates Next Due COVID-19 Vaccine Spikevax (M oderna 50mcg/0.5mL) 12YO+ 8717-4152 Formula PF 07/02/2023 COVID-19 vaccine (Moderna 100mcg/0.5mL) [...] Comments Blood Pressure 143/65 06/18/2023 10:49 AM SHIPPING AND RECEIVING WEIGHER Pulse 53 06/18/2023 10:49 AM SHIPPING AND RECEIVING WEIGHER Temperature 36.8 ??C (98.3 ??F) 01/11/2023 5:31 PM CD T Respiratory Rate 14 06/18/2023 10:4 9 AM SHIPPING AND RECEIVING WEIGHER Oxygen Saturation 94% 06/18/2023 10: 49 AM SHIPPING AND RECEIVING WEIGHER Inhaled Oxygen Concentration - - Weight 129.8 [...] 07/23/2023 07/23/2022, 07/20/2022, 07/16/2020, Additional history exists COVID-19 vaccine series (4 - 2022- season) 2023 07/02/2023, 01/20/2021, 10/09/2020 BMI (ht and wt on same day) for age 18+ 01/15/2024 01/14/2023, 07/20/2022, 10/31/2021, Additional history exists Influenza for age 65+ 03/19/2024 06/11/2023, 020 Tetanus booster 09/04/2024 09/04/2014, 01/15/2006 Lipids for age 45-75 03/04/2028 03/04/2023, 10/31/2021, 05/01/2019, Additional history exists Colonoscopy through age 75 06/18/202806/18, 06/18/2023, 06/18/2023, Additional history exists Tdap Completed 09/04/2014 Hepatitis C screening for ag e 18-79 Completed 05/01/2019 Medical Devices Implanted Type Area Mine Surveyor Device Identifier Shelf Expiration Date Model / Serial / Lot Mesh Ventralex Hernia Patch (S) #[id number] - [id number] Implanted:Qty: 1 on 12/12/2013 by Edwardo Joseph MD at [facility] N/A: Abdomen D-BARD 09/16/2015 [id number] / / [id number] Mesh Surgical 3in X 6in #[id number] - [id number] Implanted:Qty: 1 on 08/11/2016 by Edwardo Joseph MD at [facility] Right: Inguinal D-BARD 04/15/2021 [id number] / / [id number] Procedures Procedure Name Priority Date/Time Associated Diagnosis Comments COLONOSCOPY SCREENING Routine 06/18/2023 9:08 AM SHIPPING AND RECEIVING WEIGHER History of colon polyps LIPID PANEL W REFLEX MEASURED LDL Routine 03/04/2023 3:08 PM CDT Lipid screening ANTI HCV Routine 05/01/2019 9:29 AM CDT Need for hepatitis C screening test from Last 3 Months or Most Recently Relevant to Health Maintenance Results * COLONOSCOPY (06/18/2023 9:49 AM SHIPPING AND RECEIVING WEIGHER) 06/18/2023 9:49 AM SHIPPING AND RECEIVING WEIGHER Narrative Transcriptions Leonard Loera MD - 06/18/2023 [...] adequate candidate for conscious sedation. The endoscope [id number] was passed through the anus andadvanced to [...] 9:49 AM Procedure Code(s): --- Professional --- 09953, Colonoscopy, flexible; with biopsy, single or multiple Diagnosis Code(s): --- Professional --- Z86.010, Personal history of colonicpolyps D12.5, Benign neoplasm of sigmoid colon K57.30, Diverticulosis of large intestine without perforation or abscess withoutbleeding CPT copyright 2021 [employer]. All rights reserved. The codes documented in this report are preliminary and upon health information coder reviewmay be revised to meet current compliance requirements. Scope In: 10:16:53 AM Scope Withdrawal Time 0 hours 9 minutes 26 seconds Scope Out: 10:29:57 AM Leonard Loera MD PROCEDURE ORD * (ABNORMAL) LIPID PANEL W REFLEX MEASURED LDL (03/04/2023 3:08 PM CDT) CHOLESTEROL,TOTAL 142 100 - 199 mg/dL 03/04/2023 3:42 PM CDT [facility] TRIGLYCERIDES 179(H) <150 mg/dL 03/04/2023 3:42 PM CDT [facility] HDL CHOLESTEROL 35(L) >40 mg/dL 3:42 PM CDT [facility] NON-HDL CHOLESTEROL 107 <145 mg/dl 03/04/2023 3:42 PM CDT [facility] CHOL/HDL RATIO 4.06 <4.50 03/04/2023 3:42 PM CDT [facility] LDL CHOLESTEROL 71 <=130 mg/dL 03/04/2023 3:42 PM CDT [facility] VLDL CHOLESTEROL 36(H) <=30 mg/dL 03/04/2023 3:42 PM CDT [facility] PROVIDER ORDERED STATUS RANDOM 03/04/2023 3:42 PM CDT [facility] Blood BLOOD SPECIMEN / Unknown Venipuncture / Unknown 03/04/2023 3:08 PM CDT 03/04/2023 3:09 PM CDT Deny Weber DO CHEMISTRY [facility] [address] [place] [address] * ANTI HCV (05/01/2019 9:29 AM CDT) HEPATITIS C ANTIBODY Non-React emma Non-React emma 05/01/2019 5:39 PM CDT [facility] Comment:Antibodies to HCV no t detected; does not exclude the possibility of exposure to HCV. Blood BLOOD SPECIMEN / Unknown Venipuncture / Unknown 05/01/2019 9:29 AM CDT 05/01/2019 9:29 AM CDT Deny Fairappleanya Tia SOLORIO [facility] [address] [place] [address], from Last 3 Months or Most Recently Relevant to Health Maintenance Advance Directives * Full Code (Latest Code Status on File) Date Activated Date Inactivated Comments 08/11/2016 4:36 PM 08/11/2016 7:46 PM * Full Code Date Activated Date Inactivated Comments 08/10/2016 2:39 PM 08/11/2016 4:36 PM * Full Code Date Activated Date Inactivated Comments 01/11/2012 1:28 PM 01/11/2012 6:59 PM * Full Code Date Activated Date Inactivated Comments 01/11/2012 12:18 PM 01/11/2012 1:28 PM * Full Code Date Activated Date Inactivated Comments 08/17/2011 6:08 AM 08/17/2011 11:06 AM
--- OUTSIDE RECORDS SUMMARY | 2024-01-31 20:43 | XMS_ITS ---
Author Organization [facility] Address [address] [place] [address] Care Team Providers Care Records Management Clerk Name Role Phone Unavailable Unavailable Unavailable Surgery Details Not on file Complications Check Surgery Details section. Procedure Estimated Blood Loss Check Surgery Details section. Procedure Findings Check Surgery Details section. Procedure Specimens Taken Check Surgery Details section.
--- OUTSIDE RECORDS SUMMARY | 2024-01-31 20:43 | XMS_ITS | Referral Summary ---
Author Organization [facility] Address [address] [place] [address] Care Team Providers Care Carbon Capture Power Plant Manager Name Role Phone Elsewhere, Pcp Primary Care Provider Unavailabl e Source Comments Patient records contain information from all sites at [facility]. For routine questions regarding patient records, call [phone] during business hours, M-F 8:00 AM - 5:00 PM Central Time. Record requests for emergency care only can be directed to [phone] at any time.[facility] Allergies No known active allergies Medications [...] tablet by mouth daily. 10/17/2014 Active vitamins A,C,T-qdjd-lrntxw (PRESERVISION AREDS) 7,160 Units-113 mg-100 Units per [...] Date Recorded Dental: Regular Dentist Unknown 09/19/19 Sex and Gender Information Value Date Recorded [...] CDT Plan of Treatment Not on file Procedures Procedure Name Priority Date/Time Associated Diagnosis Comments EXTI COMPREHENSIVE METABOLIC PANEL, S/P Routine 10/31/2021 4:37 PM CDT from Last 3 Months or Most Recently Relevant to Health Maintenance Care Teams Carbon Capture Power Plant Manager Relationship Specialty Start Date End Date Elsewhere, Pcp PCP - General Family Medicine 12/27/20
[2024-01-31 20:44] LABS: Chloride* 105 mmol/L (96-114); Potassium* 3.9 mmol/L (3.6-5.1); Sodium* 137 mmol/L (135-149)
[2024-01-31 20:47] LABS: Anion Gap 6 mEq/L (7-15); Blood Urea Nitrogen* 14 mg/dL (7-30); Carbon Dioxide* 26 mmol/L (20-32); Creatinine* 1.1 mg/dL (0.5-1.5); Est. Creatinine Clearance* 69.13; Estimated Glomerular Filt Rate 75 ml/min
[2024-01-31 20:48] LABS: Calcium* 9.5 mg/dL (8.4-10.6); Glucose* 120 mg/dL (60-115)
[2024-01-31 21:01] VITALS: BP 196/112; PULSE 48; RESP 16; O2SAT 96
[2024-01-31 21:01] LABS: Troponin I* < 0.01 ng/mL (0.01-0.04)
== END 2024-01-31 21:35 | disposition home or self-care (01) ==
PROVIDERS: Emergency Provider Emergency Medicine; PCP Family Medicine
DX: I10 Essential (primary) hypertension (principal)
CPT/HCPCS: 36415; 80048; 84484; 93005; 99283

== ENCOUNTER 2024-12-08 04:50 | Outpatient (CLI) | payer OTHER, SELFPAY | END 2024-12-08 04:51 | disposition home or self-care (01) | PROVIDERS: PCP Family Medicine; Visit Provider Family Medicine | DX: E78.2 Mixed hyperlipidemia (principal); I10 Essential (primary) hypertension; Z12.5 Encounter for screening for malignant neoplasm of prostate | CPT/HCPCS: 80048; 80061; 84460; G0103 ==

== ENCOUNTER 2025-04-06 08:55 | Outpatient (CLI) | payer OTHER, SELFPAY | END 2025-04-06 08:56 | disposition home or self-care (01) | LOC: RAD 08:56 | PROVIDERS: PCP Family Medicine; Visit Provider Family Medicine | DX: I77.810 Thoracic aortic ectasia (principal); I51.7 Cardiomegaly; I35.1 Nonrheumatic aortic (valve) insufficiency | CPT/HCPCS: 93306 ==